=== PATIENT | female | born 1970 | race Caucasian/White ===

== ENCOUNTER → 2022-05-08 11:37 | Outpatient (CLI) | payer OTHER, SELFPAY ==
--- NOTE | 2022-05-08 | DI.US.S_ITS ---
LIMITED ULTRASOUND OF RIGHT BREAST AND AXILLA: 05/08/2022 CLINICAL: Palpable right breast lump by physical, patient and technologist. No prior exams were available for comparison. Color flow and real-time ultrasound of the right breast 12 o'clock, and axilla regions were performed. Angel scale images of the real-time examination were reviewed. There is a 3 cm x 4 cm x 2.3 cm irregular, rounded mass with a microlobulated, angular, and spiculated margin in the right breast at 12 o'clock posterior depth. This mass is hypoechoic. This correlates as palpated and with mammography findings. There are calcifications within the mass. Color flow imaging demonstrates that there is vascularity present. No significant abnormalities were seen sonographically in the right axilla. IMPRESSION: HIGHLY SUGGESTIVE OF MALIGNANCY A 3 cm x 4 cm x 2.3 cm mass in the right breast correlates with the palpable and mammographic abnormality and is highly suggestive of malignancy. An ultrasound guided biopsy is recommended. No right axillary adenopathy. Findings and recommendations were discussed with the patient in person by Dr. Judith Scott at time of exam. This exam was interpreted at Station ID: [id number]. Electronically Signed By: Julia keyes/:05/08/2022 13:11:57 letter sent: Biopsy Required Ultrasound BI-RADS: 5 Highly suggestive of malignancy
--- NOTE | 2022-05-08 | DI.MG.S_ITS ---
BILATERAL DIGITAL DIAGNOSTIC MAMMOGRAM 3D/2D: 05/08/2022 CLINICAL: Right breast lump. Baseline exam by default. No prior exams were available for comparison. There are scattered fibroglandular elements in both breasts. There is a 3.4 cm irregular high density mass with a microlobulated margin and grouped linear pleomorphic calcifications in the right breast at 12 o'clock posterior depth. This is seen in additional views. This correlates as palpated. No other significant masses, calcifications, or other findings are seen in either breast. IMPRESSION: INCOMPLETE: NEEDS ADDITIONAL IMAGING EVALUATION The 3.4 cm irregular high density mass corresponding to the palpable abnormality in the right breast is suspicious. An ultrasound is recommended. This was performed immediately following this exam. Based on the Tyrer Cuzick model (a risk assessment model) the patient's lifetime risk is 9.5% and her 10 year risk is 2.7%. According to the ACR, ACS, and NCCN guidelines, an annual breast MRI exam along with mammogram is recommended if the patient's lifetime risk is 20% or greater. This exam was interpreted at Station ID: [id number]. NOTE: For mammograms, a report in lay terms will be sent to the patient. Approximately 15% of breast malignancies will not be visualized mammographically. In the management of a palpable breast mass, a negative mammogram must not discourage biopsy of a clinically suspicious lesion. Electronically Signed By: Julia keyes/:05/08/2022 12:45:34 ACR BI-RADS Category 0: Incomplete [id number]
--- NOTE | 2022-05-08 | DI.CT.S_ITS ---
PROCEDURE: CT ABDOMEN PELVIS W CON INDICATIONS: Elevated LFT'S TECHNIQUE: After the administration of intravenous contrast, axial sections acquired from the lung bases to the pubic symphysis. Coronal and sagittal reformats were performed. For radiation dose reduction, the following was used: automated exposure control, adjustment of mA and/or kV according to patient size. COMPARISON: None. FINDINGS: Image quality: Excellent. Lung bases: Unremarkable. Heart: No significant findings. ABDOMEN: Liver: There are multiple low-density hepatic masses, indicating a severe degree of a patent metastatic disease. Liver is enlarged. Gallbladder: Is within normal limits Biliary ducts: Unremarkable. Pancreas: Unremarkable. Spleen: Unremarkable. Adrenal Glands: Unremarkable. Kidneys and Ureters: Unremarkable. Stomach and Bowel: Stomach, small bowel loops, and colon are unremarkable. Appendix not seen. No evidence of appendicitis. Peritoneum: No abnormal intraperitoneal fluid. No free air. Ventral Wall: No hernias. Abdominal Nodes: No retroperitoneal or mesenteric adenopathy by size criteria. Vessels: Aorta and inferior vena cava are normal in size. PELVIS: Pelvic Organs: Unremarkable. Bladder: Unremarkable. Pelvic Nodes: No enlarged lymph nodes. Miscellaneous: No hernias are seen. Bones: Unremarkable. IMPRESSION: 1. Severe degree of hepatic metastatic disease. Dictated by: Anamaria Best M.D. on 05/08/2022 at 15:08 Approved by: Anamaria Best M.D. on 05/08/2022 at 15:10
== END ==
PROVIDERS: PCP Naturopath; Referring Provider Naturopath; Visit Provider Naturopath
DX: N63.15 Unspecified lump in the right breast, overlapping quadrants (principal); C80.1 Malignant (primary) neoplasm, unspecified; C78.7 Secondary malignant neoplasm of liver and intrahepatic bile duct; R92.8 Other abnormal and inconclusive findings on diagnostic imaging of breast; R74.8 Abnormal levels of other serum enzymes; R10.11 Right upper quadrant pain
CPT/HCPCS: 74177; 76642; 77066; G0279; Q9967

== ENCOUNTER → 2022-05-16 14:04 | Outpatient (CLI) | payer OTHER, SELFPAY ==
--- NOTE | 2022-05-16 | PATH_ITS ---
[facility] Accession Number: [id number] . 01 Material submitted: . breast - RIGHT BREAST MASS 12:00 APPROX 7 CM FROM NIPPLE . 01 Diagnosis: Right Breast Mass, 12 o'clock, Approximately 7 cm from Nipple, Needle Core Biopsy: Positive for invasive ductal carcinoma. Please see cancer case summary. . CANCER CASE SUMMARY Specimen Procedure: Needle biopsy. Specimen laterality: Right. . Tumor Tumor Size: 5 mm in greatest dimension. Tumor site: Between the upper outer and upper inner quadrants at 12 o'clock. Distance from nipple: Approximately 7 cm. Histologic type: Invasive carcinoma of no special type (ductal by e-cadherin immunohistochemistry). . Histologic grade Glandular/tubular differentiation: Score 3 of 3. Nuclear pleomorphism: Score 2 of 3. Mitotic rate: Score 1 of 3. Overall grade: Grade 2 (6 of 9). . Carcinoma in situ: Not identified. . Lymphovascular invasion: Not identified. . Special studies: Please microscopic description. [facility] 05/22/2022 1200 Local . 01 Electronically signed: . Carmella Novak MD, Pathologist NPI- [id number] . 01 Gross description: . Received one formalin-filled container, labeled with the patient's name and right breast 12 o'clock. The specimen is received with a plastic filter in container, sample loose in container and consists of three fragments of light vasquez-olivas soft tissue which range in size from 0.3 x 0.3 x 0.2 cm to 0.7 x 0.1 x 0.1 cm. The specimen is entirely submitted in one cassette. Collection time and date per requisition: 05/16/22 at 1456. Total fixation time: Approximately 36 hours. ([id number]) /[facility] 05/17/2022 0403 Local . 01 Microscopic: . An immunohistochemistry panel is performed to further evaluate the cells of interest. The control stains show appropriate reactivity. . RESULTS: E-cadherin: Strongly positive, consistent with ductal differentiation. GATA3: Strongly positive, consistent with breast origin. . CAP BREAST BIOMARKER REPORTING TEMPLATE: . Estrogen Receptor (ER) Status: Positive. Average intensity of staining: Positive for the biomarker, moderate staining intensity, approximately 60% of tumor nuclei. Primary antibody: SP1 Progesterone Receptor (PgR) Status: Uninterpretable. Average intensity of staining: weak staining in less than 1% of tumor nuclei; no internal control identified (external control stains appropriately). Primary antibody: 1E2 HER2 (by immunohistochemistry): Equivocal at 2+. Percentage of cells with uniform intense complete membrane stainin% Primary antibody: 4B5 HER2 (ERBB2) (by in situ hybridization): FISH is pending; results will be reported as an addendum. . Cold Ischemia and Fixation Times: Meets requirements in the latest version of the ASCO/CAP guidelines. Testing performed on Block Number: A . TECHNICAL NOTE: The scoring criteria for breast biomarkers by immunohistochemistry is based on the current ASCO/CAP guidelines (Reza et al, Arch Pathol Lab Med 2010: 134(6): 907-922 / Iban SMITH et al, Arch Pathol Lab Med 2014: 138(2):241-256). Deparaffinized sections of formalin fixed tissue (along with appropriate positive controls) are incubated with the above antibody(s). Using the automated [place] stainer, tissue is incubated with the designated antibody* which is then localized by a non-biotin, dual polymer detection system. The external controls are reviewed for appropriate reactivity and found to be adequate. Results on the target cell population are indicated above. These tests have not been validated on decalcified tissue. * This test was developed and its performance characteristics determined by [employer]. It has not been cleared or approved by the U.S. Food and Drug Administration. The FDA has determined that such clearance or approval is not necessary. This test is used for clinical purposes. It should not be regarded as investigational or for research. . 01 Pathologist provided ICD-10: N63.10, C50.911 . 01 CPT . 966748, 050634, 888159, 040332, F80489 Specimen Comment: A courtesy copy of this report has been sent to [facility] Performed at: 01 [facility] [address], [place], [place] [id number] MD Justin Rowell MD Phone: [phone]
--- NOTE | 2022-05-16 | DI.MG.S_ITS ---
UNILATERAL RIGHT DIGITAL DIAGNOSTIC MAMMOGRAM 3D/2D POST-PROCEDURE IMAGING FOR MARKER PLACEMENT: 05/16/2022 CLINICAL: Right post clip. Comparison is made to exams dated: 05/08/2022 ultrasound and 05/08/2022 mammogram - [facility]. There are scattered fibroglandular elements in right breast. There is a marker clip in the appropriate position in the right breast at 12 o'clock posterior depth. This marker clip placement is at the biopsy site. IMPRESSION: POST PROCEDURE MAMMOGRAM FOR MARKER PLACEMENT There was a successful marker clip placement in the right breast posterior depth. Based on the Tyrer Cuzick model (a risk assessment model) the patient's lifetime risk is 7.4% and her 10 year risk is 2.1%. According to the ACR, ACS, and NCCN guidelines, an annual breast MRI exam along with mammogram is recommended if the patient's lifetime risk is 20% or greater. This exam was interpreted at Station ID: [id number]. NOTE: For mammograms, a report in lay terms will be sent to the patient. Approximately 15% of breast malignancies will not be visualized mammographically. In the management of a palpable breast mass, a negative mammogram must not discourage biopsy of a clinically suspicious lesion. Electronically Signed By: Johnny tamez/david:05/16/2022 16:10:55 ACR BI-RADS Category Post-procedure mammogram for marker placement
--- NOTE | 2022-05-16 | DI.US.S_ITS ---
ULTRASOUND GUIDED BIOPSY RIGHT BREAST USING VACUUM DEVICE WITH MARKING DEVICE INSERTED AND POST DIGITAL MAMMOGRAPHIC AND ULTRASOUND IMAGIN05/16/2022 CLINICAL: Right breast mass. PATIENT CONSENT: Risks (minor bleeding, infection, vasovagal reaction and repeat procedure), benefits and alternatives were explained to the patient and written informed consent was obtained. Correlation is made to exams dated: 05/08/2022 ultrasound and 05/08/2022 mammogram - [facility]. An ultrasound guided biopsy using real-time ultrasound was performed for the 3 cm x 4 cm x 2.3 cm mass located in the right breast at 12 o'clock posterior depth. This was described on the previous mammography and ultrasound reports. The skin was prepped in the usual manner. Local anesthetic was administered to the access site. A skin makeda was made in the breast. The abnormality was approached from the lateral aspect. A 13 gauge biopsy needle was placed adjacent to the abnormality under ultrasound guidance. Once the needle was documented to be in the correct location, four specimens were obtained using the Mammotome biopsy system. The patient received additional local anesthetic during the procedure. A clip was inserted into the biopsy cavity. A sterile dressing was applied to the access site. Post procedure digital mammographic and ultrasound imaging demonstrates the location device at the targeted area. The specimens were sent to the laboratory for pathological analysis. IMPRESSION: ULTRASOUND GUIDED BIOPSY MALIGNANT Ultrasound guided biopsy of the 3 cm x 4 cm x 2.3 cm mass in the right breast at 12 o'clock posterior depth was successful with no apparent post procedure complications. Pathology indicates malignant invasive ductal carcinoma (ID). Pathology results are concordant with imaging findings. A surgical/oncologic consultation is recommended. Results and recommendations will be communicated to the ordering provider's office. This exam was interpreted at Station ID: [id number]. wali Linares M.D., M.D./:05/22/2022 15:55:14
== END ==
PROVIDERS: PCP Naturopath; Referring Provider Naturopath; Visit Provider Naturopath
DX: C50.811 Malignant neoplasm of overlapping sites of right female breast (principal); Z17.0 Estrogen receptor positive status [ER+]
CPT/HCPCS: 19083; 77065

== ENCOUNTER → 2022-11-05 13:59 | Outpatient (CLI) | payer OTHER, SELFPAY ==
--- NOTE | 2022-11-05 14:03 | DI.CT.S_ITS ---
PROCEDURE: CT CHEST ABD PEL W CON INDICATIONS: Breast cancer TECHNIQUE: After the administration of oral and intravenous contrast, axial sections acquired from the supraclavicular neck to the pubic symphysis. Coronal and sagittal reformats were performed. For radiation dose reduction, the following was used: automated exposure control, adjustment of mA and/or kV according to patient size. COMPARISON: [facility], CT, CT ABDOMEN PELVIS W CON, 05/08/2022, 13:18. [facility], US, US BX BREAST PERC W VAC DEVICE, 05/16/2022, 14:18. FINDINGS: Image quality: Excellent. CHEST: Lower Neck: No enlarged lymph nodes. Thyroid: Unremarkable Axillae: Right axillary node measuring at 0.8 cm short axis diameter, (2/30). Subpectoral node measuring 0.8 cm, (2/24). Chest Wall: Right breast mass measuring 4.4 x 3.1 cm, (2/33). Lungs and Airways: A few small pulmonary nodules. For example: -Right upper lobe 0.5 cm, (5/117). -Right middle lobe 0.6 cm, (5/196). -Right lower lobe 0.5 cm, (5/265), previously 0.2 cm. -Left upper lobe 0.4 cm, (5/192). Pleura: No pneumothorax or pleural effusions. Heart: Heart size is normal. No pericardial effusion. Thoracic Vessels: The aorta and pulmonary arteries demonstrate normal size. Mediastinum and Sharron: No enlarged lymph nodes. Esophagus: No wall thickening. No hiatal hernia. ABDOMEN: Liver: Hepatomegaly. Innumerable hepatic metastases are worsened. For example: -Left lobe 6 cm, (2/67), previously 4.4 cm. -Right lobe inferior 3.9 cm, (2/97), previously 2.1 cm. Gallbladder: Not distended. Biliary ducts: Unremarkable. Pancreas: Unremarkable. Spleen: Unremarkable. Adrenal Glands: Unremarkable. Kidneys and Ureters: No hydronephrosis. Stomach and Bowel: No small bowel obstruction. Stomach is not distended. Appendix is not dilated. Peritoneum: Small volume of ascites, increased. No pneumoperitoneum. Ventral Wall: No hernia. Abdominal Nodes: Retroperitoneal adenopathy and periportal. -Intra-aortic caval node measuring 1.3 cm, (2/75), previously 1 cm. -Left periaortic 1.1 cm, (/), previously 0.8 cm. Vessels: Aorta and inferior vena cava are normal in size. PELVIS: Pelvic Organs: Uterus is absent. Small to moderate volume of fluid in the pelvis. Bladder: Decompressed. Pelvic Nodes: No enlarged lymph nodes. Miscellaneous: No inguinal hernias are seen. Bones: No suspicious lesion identified. IMPRESSION: 1. Right breast mass measuring 4.4 cm. 2. Small right axillary and subpectoral nodes. 3. Small pulmonary nodules most consistent with metastatic disease. 4. Enlarging innumerable hepatic metastases. Increased small volume ascites. 5. Retroperitoneal and periportal adenopathy is increased. 6. No suspicious osseous lesions. Dictated by: Vito Carmona M.D. on 11/05/2022 at 17:24 Approved by: Vito Carmona M.D. on 11/05/2022 at 17:44
== END ==
PROVIDERS: PCP Naturopath; Referring Provider Internal Medicine Hematology & Oncology; Visit Provider Internal Medicine Hematology & Oncology
DX: C50.911 Malignant neoplasm of unspecified site of right female breast (principal); C78.7 Secondary malignant neoplasm of liver and intrahepatic bile duct; R91.8 Other nonspecific abnormal finding of lung field; Z17.0 Estrogen receptor positive status [ER+]
CPT/HCPCS: 71260; 74177; 99213; Q9967

== ENCOUNTER 2022-11-12 12:32 | Day surgery (SDC) | payer OTHER, SELFPAY ==
[2022-11-06 15:11] VITALS: BMI 19.3
[2022-11-12] VITALS (8 sets, daily range): BP systolic 112–139; BP diastolic 68–84; PULSE 59–106; RESP 11–16; TEMP 36.2–37; O2SAT 95–99; BMI 18.3
--- NOTE | 2022-11-12 | PATH_ITS ---
[facility] Accession Number: [id number] No. of containers..01 Tissue . 01 Material submitted: . lymph node - RIGHT NECK LYMPH NODE . 01 Diagnosis: Right Neck Lymph Node, Excision: Adenocarcinoma, consistent with known ductal mammary carcinoma. No definite lymph node tissue identified. . . CAP BREAST BIOMARKER REPORTING TEMPLATE: . Estrogen Receptor (ER) Status: Positive, 30%. Average intensity of staining: Weak. Primary antibody: SP1 Progesterone Receptor (PgR) Status: Negative. Primary antibody: 1E2 HER2 (by immunohistochemistry): Equivocal (2+). Primary antibody: 4B5 . Cold Ischemia and Fixation Times: Meets requirements in the latest version of the ASCO/CAP guidelines. Testing performed on Block Number: A1 . TECHNICAL NOTE: The scoring criteria for breast biomarkers by immunohistochemistry is based on the current ASCO/CAP guidelines (Reza et al, Arch Pathol Lab Med 2010: 134(6): 907-922 / Iban SMITH et al, Arch Pathol Lab Med 2014: 138(2):241-256). Deparaffinized sections of formalin fixed tissue (along with appropriate positive controls) are incubated with the above antibody(s). Using the automated [place] stainer, tissue is incubated with the designated antibody* which is then localized by a non-biotin, dual polymer detection system. The external controls are reviewed for appropriate reactivity and found to be adequate. Results on the target cell population are indicated above. These tests have not been validated on decalcified tissue. * This test was developed and its performance characteristics determined by [employer]. It has not been cleared or approved by the U.S. Food and Drug Administration. The FDA has determined that such clearance or approval is not necessary. This test is used for clinical purposes. It should not be regarded as investigational or for research. V 11/18/2022 1238 [facility] . 01 Comment: Given the equivocal HER2 status by immunohistochemistry, FISH will be performed, and results issued in an addendum. . As part of routine quality assurance supervisor body. Dr. Novak has reviewed this case, including the prognostic markers, and agrees with the diagnosis above. . 01 Electronically signed: . Pee Douglass MD, PhD, Pathologist NPI- [id number] . 01 Gross description: . The specimen is received in formalin labeled with the patient's name, , and right neck lymph node, and consists of a single olivas lymph node candidate measuring 1.2 x 0.7 x 0.7 cm. The specimen is serially sectioned and submitted entirely in cassette A1. The specimen was removed on 11/12/22, time not provided, cold ischemic time cannot calculated. Total fixation time is approximately 48 hours. ([id number]) /[facility] 11/13/2022 1750 Local . 01 Microscopic: . Sections are of fibrous tissue expanded by a proliferation of epithelioid cells in a nested and trabecular architecture. No definite lymph node tissue is seen. To further classify the malignant cells, a panel of immunohistochemical stains is performed (each with an appropriately positive control). The malignant cells are positive for GATA3 (strong diffuse), GCDFP (rare positive), and mammoglobin (rare positive) immunoreactivity, consistent with the known history of ductal mammary carcinoma. . * This test was developed and its performance characteristics determined by [employer]. It has not been cleared or approved by the U.S. Food and Drug Administration. The FDA has determined that such clearance or approval is not necessary. This test is used for clinical purposes. It should not be regarded as investigational or for research. . 01 Pathologist provided ICD-10: C77.0, Z85.3 . 01 CPT . 408129, D90166, L06815, 912034, 790850, 527180 Specimen Comment: A courtesy copy of this report has been sent to [phone] Performed at: 01 [facility] [address] [place] [address], [place], [place] [id number] MD Justin Rowell MD Phone: [phone]
--- NOTE | 2022-11-12 | DI.RAD.S_ITS ---
PROCEDURE: XR CHEST 1V INDICATIONS: intra-op TECHNIQUE: 2 intraoperative fluoroscopic views of the chest was acquired. COMPARISON: [facility], , XR CHEST 1V, 11/12/2022, 15:34. FINDINGS: Intraoperative fluoroscopic images of right upper chest shows right chest wall Port-A-Cath tip projecting in the region of SVC. IMPRESSION: Fluoro guidance was provided intraoperatively for right chest wall Port-A-Cath insertion. Dictated by: Tahir Olivares M.D. on 11/12/2022 at 16:10 Approved by: Tahir Olivares M.D. on 11/12/2022 at 16:10
--- NOTE | 2022-11-12 | DI.RAD.S_ITS ---
PROCEDURE: XR CHEST 1V INDICATIONS: Post-op port a cath placement TECHNIQUE: One view of the chest was acquired. COMPARISON: None. FINDINGS: Surgical changes and devices: Right chest wall Port-A-Cath tip is in SVC. Lungs and pleura: Lungs are clear. No pleural effusions or pneumothorax. Mediastinum: Mediastinal contours appear normal. Heart size is normal. Bones and chest wall: No suspicious bony lesions. Overlying soft tissues appear unremarkable. IMPRESSION: Right chest wall Port-A-Cath tip is in SVC. No focal infiltrate, pleural effusion or pneumothorax. Dictated by: Tahir Olivares M.D. on 11/12/2022 at 16:09 Approved by: Tahir Olivares M.D. on 11/12/2022 at 16:10
--- NOTE | 2022-11-12 12:58 | PM.PREOP ---
Pre-operative Note COVID-19 COVID-19 status: Not tested Interval Note History & Physical reviewed/Exam performed by Physician: Yes Changes to H&P: No ASA Class (for procedural sedation): III
[2022-11-12] MEDS: LACTATED RINGERS 1,000 ML 100 ML IV ×3 (13:41→15:50)
[2022-11-12] MEDS: SCOPOLAMINE 1 PATCH TOP (13:56)
[2022-11-12] MEDS: CEFAZOLIN 2 GM/100 ML PREMIX 100 ML IV (14:10)
--- NOTE | 2022-11-12 14:32 | SUR.OPER ---
Supine on padded OR bed, head on gel donut, arms padded and tucked at sides, legs uncrossed, safety belt at thigh, tape over blanket over lower legs . Gel pad under bilateral heels.
[2022-11-12] MEDS: BUPIVACAINE 0.5% W/ EPI (PF) 30 ML VIAL INJ (15:01)
--- NOTE | 2022-11-12 15:30 | PM.OP.1 ---
Operative Date/Time/Diagnoses Date of procedure: 11/12/22 Time of procedure: 15:31 Pre-op diagnosis: Metastatic breast cancer Post-op diagnosis: same Procedure & Clinicians Procedure: Port-A-Cath Right neck lymph node biopsy Same procedure as scheduled: Yes Surgeon: Woodrow Dorsey Anesthesia Type: General Operative Notes Procedure in detail: The patient was brought to the operating room, placed on the table in the supine position with the arms tucked. Ancef was administered. Anesthesia was induced via LMA. A time-out was performed. The right chest and neck were prepped and draped in the usual fashion. An ultrasound was used to identify the right internal jugular vein. The vein was noted to be patent. An image was saved and printed and placed in the chart. The right internal jugular vein was accessed via the Seldinger technique under ultrasound guidance. The guidewire was inserted into the superior vena cava. C-arm was used to confirm proper position of the guidewire in the superior vena cava and no ectopy was noted. The needle was removed and the wire was clamped to the drape. Next, a port pocket was created just inferior to the right clavicle using a 15 blade scalpel. Dissection was carried down to the pectoral fascia. A subcutaneous pocket was created using a combination of cautery and blunt dissection. Next, the port which was primed with injectable saline, was secured to the fascia with 3-0 PDS sutures left untied and clamped. The neck incision was extended with an 11 blade scalpel to approximately 5 mm. The dilator and peel-away sheath were inserted over the wire without resistance. The catheter was passed from the neck incision to the chest incision in the subcutaneous tissue using the tunnelling device. The wire and dilator were then removed and the catheter inserted through the peel-away sheath to deliver it into the superior vena cava. The depth of the device was checked using the C-arm and the tip of the device was noted to be in the distal superior vena cava. The exterior portion of the catheter was then trimmed and attached to the port using the strain relief collar. A final image showed good position of the catheter with no kinks. The port was then tucked into the subcutaneous pocket and the sutures were tied to secure the device. The port was then accessed using the Watson needle and it was noted that the device darrion and flushed easily without resistance. Approximately 6 mL of heparinized saline were injected into the device. The skin incisions were closed with 3-0 Vicryl and 4-0 Monocryl. Steri-Strips were applied patient was awakened and brought to recovery room. Finally, the palpable lymph node in the lateral right neck was excised. We made a 2 cm axial incision over the palpable node. The node appeared to be deep to the platysma which was divided. The node was grasped with an Allis clamp to retracted away from the neck and careful use of cautery was used to free the node from the surrounding tissue. The node was quite firm and was about 5 mm in diameter. The biopsy incision was closed in layers using multiple interrupted 3-0 Vicryl dermal sutures and a running 4-0 Monocryl subcuticular stitch. EBL: 5 mL Ultrasound: The right internal jugular vein was patent. The right carotid artery was visualized adjacent to the vein. Venipuncture was visualized in real-time using the ultrasound. Fluoroscopy: The device was positioned appropriately with the distal end of the catheter near the atriocaval junction. There were no kinks in the catheter. Post-operative Condition: stable Disposition: PACU
[2022-11-12] MEDS: fentaNYL 100 MCG/2 ML INJ IV ×2 (15:43→15:53)
[2022-11-12] MEDS: ONDANSETRON 4 MG/2 ML INJ IV ×2 (15:44→15:58)
[2022-11-12] MEDS: ACETAMINOPHEN IV 1,000 MG/100 ML VIAL 400 MG IV (16:05)
[2022-11-12] MEDS: METOCLOPRAMIDE 10 MG/2 ML INJ IV (16:05)
== END 2022-11-12 17:05 | disposition home or self-care (01) ==
PROVIDERS: PCP Naturopath; Referring Provider Surgery; Visit Provider Surgery
PROC: (CPT 36561; principal; 2022-11-12 14:00)
PROC: (CPT 36561; 2022-11-12 14:00)
DX: C50.911 Malignant neoplasm of unspecified site of right female breast (principal); C78.7 Secondary malignant neoplasm of liver and intrahepatic bile duct; C77.0 Secondary and unspecified malignant neoplasm of lymph nodes of head, face and neck; Z17.0 Estrogen receptor positive status [ER+]
CPT/HCPCS: 36561; 38510; 71045; 76000; J0131; J0690; J1100; J1644; J1885; J2250; J2405; J2704; J2765; J3010

== ENCOUNTER → 2023-02-04 13:43 | Outpatient (CLI) | payer OTHER, SELFPAY ==
--- NOTE | 2023-02-04 | DI.CT.S_ITS ---
PROCEDURE: CT CHEST ABD PEL W CON INDICATIONS: MALIGNANT NEOPLASM OF RIGHT BREAST TECHNIQUE: After the administration of oral and intravenous contrast, axial sections acquired from the supraclavicular neck to the pubic symphysis. Coronal and sagittal reformats were performed. For radiation dose reduction, the following was used: automated exposure control, adjustment of mA and/or kV according to patient size. COMPARISON: [facility], CT, CT CHEST ABD PEL W CON, 11/05/2022, 15:49. FINDINGS: Image quality: Excellent. CHEST: Lower Neck: No enlarged lymph nodes. Thyroid: Within normal limits. Axillae: Right subpectoral node measuring 0.6 cm, (2/22), previously 0.5 cm. Chest Wall: Right breast mass measures 1.3 cm, (2/27), previously 3.1 cm. Right-sided port with the catheter tip at the lower 3rd of the SVC. Lungs and Airways: No new or enlarging pulmonary nodules. A few small pulmonary nodules. For example: -Right middle lobe 0.4 cm, (5/147), previously 0.6 cm. -Right lung base is 0.3 cm, (5/238), previously 0.5 cm. No acute airspace opacity. Airways are clear. Pleura: No pneumothorax or pleural effusions. Heart: Heart size is normal. Trays pericardial fluid. Thoracic Vessels: The aorta and pulmonary arteries demonstrate normal size. Mediastinum and Sharron: No enlarged lymph nodes. Esophagus: No wall thickening. No hiatal hernia. ABDOMEN: Liver: Hepatomegaly. Numerous hepatic lesions. Some of the lesions demonstrate increased central hypodensity and decreased rim enhancement. -Left lobe lesion measuring 5.3 cm, (2/62), previously 6 cm. -Right lobe inferior lesion measuring 3.4 cm, (2/87), previously 3.9 cm. Gallbladder: Unremarkable. Biliary ducts: Unremarkable. Pancreas: Unremarkable. Spleen: Unremarkable. Adrenal Glands: Unremarkable. Kidneys and Ureters: No hydronephrosis. Stomach and Bowel: Stomach, small bowel loops, and colon are unremarkable. Normal appendix. Peritoneum: Trace ascites, decreased. No free air. Ventral Wall: No hernia. Abdominal Nodes: Retroperitoneal adenopathy. Upper intra-aortic caval node measuring 1 cm, (2/70), previously 1.3 cm. Left periaortic node measuring 0.9 cm, (previously 1.1 cm. Vessels: Aorta and inferior vena cava are normal in size. PELVIS: Pelvic Organs: Uterus is absent. Bladder: Unremarkable. Pelvic Nodes: No enlarged lymph nodes. Miscellaneous: No inguinal hernias are seen. Bones: No suspicious lesion. IMPRESSION: 1. Right breast mass measuring 1.3 cm, decreased. 2. Right subpectoral node is unchanged. 3. Small pulmonary nodules are decreased. 4. Numerous hepatic metastases. A few are decreased in size. There is decreased rim enhancement and increased central hypodensity due to post treatment change. Decreased ascites. 5. Retroperitoneal adenopathy is slightly decreased. Dictated by: Vito Carmona M.D. on 02/04/2023 at 16:13 Approved by: Vito Carmona M.D. on 02/04/2023 at 16:32
== END ==
PROVIDERS: PCP Naturopath; Referring Provider Internal Medicine Hematology & Oncology; Visit Provider Internal Medicine Hematology & Oncology
DX: C50.911 Malignant neoplasm of unspecified site of right female breast (principal); C78.7 Secondary malignant neoplasm of liver and intrahepatic bile duct; R91.8 Other nonspecific abnormal finding of lung field; R59.1 Generalized enlarged lymph nodes
CPT/HCPCS: 71260; 74177; Q9967

== ENCOUNTER → 2023-03-13 12:31 | Outpatient (CLI) | payer OTHER, SELFPAY ==
--- NOTE | 2023-03-13 | DI.ECHO.S_ITS ---
[facility] +---------+ : : [address] : : : : [id number] : : : : Phone: [phone]---------+ Echocardiogram Report + + :Name: VERONICA FOWLER Study Date: 03/13/2023 Height: 66 in : :[facility] ReadingLocation: Weight: 118 lb : : Gender: Female BSA: 1.6 m2 : :: 1970 Age: 53 yrs BP: 100/63 mmHg: :Reason For Study: PALPITATIONS, CHEMOTHERAPY : :Ordering Physician: HARISH CHRISTIE MPerformed By: Adri Patten : :Referring: HARISH CHRISTIE M : + + Interpretation Summary 1) Normal left ventricular thickness, size, wall motion, and systolic function (EF 55-60%). Left ventricular global longitudinal strain average is normal at -18.2% (normal is more negative than -20%). 2) Normal right ventricular size and function. 3) No significant valvular abnormalities. 4) No prior Echo available for comparison. Procedure: A two-dimensional transthoracic echocardiogram with color flow and Doppler was performed. The study quality was technically good. There is no prior echocardiogram noted for this patient. The patient was in sinus rhythm with heart rates between 71-83 bpm during the exam. Left Ventricle: The left ventricle is normal in size and wall thickness. A false chord is noted (normal variant). Left ventricular global longitudinal strain average is normal at -18.2% (normal is more negative than -20%). The ejection fraction is estimated to be 55-60%. Left ventricular systolic function appears normal without focal wall motion abnormalities. Diastolic parameters suggest probable normal left ventricular diastolic function and normal filling pressures. Right Ventricle: The right ventricle is normal in size and function. Atria: The left atrial size is normal. Right atrial size is normal. There is no Doppler evidence for an interatrial shunt. Mitral Valve: The mitral valve is normal in structure and function. There is trace mitral regurgitation. Aortic Valve: The aortic valve is trileaflet. The aortic valve opens well. There is no aortic valve stenosis. No aortic regurgitation is present. Tricuspid Valve: The tricuspid valve is normal in structure and function. There is mild tricuspid regurgitation. The right ventricular systolic pressure is estimated to be at least 21 mmHg based on an estimated right atrial pressure of 3 mm Hg. Pulmonic Valve: The pulmonic valve leaflets are thin and pliable; valve motion is normal. There is trace pulmonic regurgitation. Great Vessels: The aortic root is normal size. The dimensions of the ascending aorta are normal. The IVC is of normal diameter and collapses greater than 50% with a sniff. This suggests a low right atrial pressure of 3 mm Hg. Pericardium/ Pleura There is no pericardial effusion. There is no pleural effusion. MMode/2D Measurements & Calculations LVIDd: 5.1 cm LVOT diam: 2.0 cm LVIDs: 3.6 cm Ao root diam: 3.3 cm FS: 29.1 % asc Aorta Diam: 3.1 cm EPSS: 0.87 cm IVSd: 0.71 cm LVPWd: 0.73 cm LV gee. diameter/BSA (cm/m^2): 3.2 LV sys. diameter/BSA (cm/m^2): 2.3 LA A2 area: 19.6 cm2 RA long axis: 4.5 cm LA A4 area: 14.0 cm2 RA area: 15.2 cm2 LA length (vol): 4.7 cm RA vol: 43.5 ml LA vol: 49.4 ml RA : 27.2 ml/m2 LA vol index: 30.9 ml/m2 IVC diam: 0.79 cm RVD1 (basal): 3.4 cm RVD2 (mid): 2.7 cm TAPSE: 1.9 cm Doppler Measurements & Calculations Ao V2 max: 134.7 cm/sec LVOT Max Declan: 89.1 cm/sec Ao V2 mean: 97.1 cm/sec LV V1 max P.2 mmHg Ao max P.3 mmHg LV V1 VTI: 16.8 cm Ao mean P.1 mmHg IRMA(I,D): 2.2 cm2 Ao V2 VTI: 23.3 cm IRMA(V,D): 2.0 cm2 sev ratio: 0.72 IRMA indexed to BSA (cm^2/m^2): 1.4 MV E max declan: 59.5 cm/sec TR max declan: 211.5 cm/sec MV A max declan: 57.6 cm/sec TR max P.9 mmHg MV E/A: 1.0 PA V2 max: 86.6 cm/sec Med Peak E' Declan: 9.7 cm/sec PA V2 mean: 64.3 cm/sec E/E' med: 6.1 PA mean P.8 mmHg Lat Peak E' Declan: 12.2 cm/sec PA pr(Accel): 41.7 mmHg E/E' lat: 4.9 E/e' average: 5.5 MV dec time: 0.22 sec SV(BRUNA): 50.3 ml Reading Physician:03:22 PM
== END ==
PROVIDERS: PCP Naturopath; Referring Provider Internal Medicine Hematology & Oncology; Visit Provider Internal Medicine Hematology & Oncology
DX: R00.2 Palpitations (principal); C55 Malignant neoplasm of uterus, part unspecified
CPT/HCPCS: 93306; 93356

== ENCOUNTER → 2023-05-27 12:37 | Outpatient (CLI) | payer OTHER, SELFPAY ==
--- NOTE | 2023-05-27 12:44 | DI.CT.S_ITS ---
PROCEDURE: CT CHEST ABD PEL W CON INDICATIONS: BREAST CANCER TECHNIQUE: After the administration of intravenous contrast, 5 mm thick sections acquired from the lung apices to the symphysis. 5 mm coronal and sagittal reformats were performed, with additional 7 mm MIP reformats through the lungs. For radiation dose reduction, the following was used: automated exposure control, adjustment of mA and/or kV according to patient size. COMPARISON: [facility], CT, CT CHEST ABD PEL W CON, 02/04/2023, 13:56. FINDINGS: CHEST: Lungs and pleura: A few small pulmonary nodules are present as before. For example: -right middle lobe: 4 mm (7/153), unchanged. -right lower lobe anterior: 3 mm (7/251), unchanged. No definite new suspicious or enlarging pulmonary nodule. No consolidation or pleural effusion. Mediastinum: No pericardial effusion. No mediastinal or hilar adenopathy by size criteria. Thoracic aorta and central pulmonary arteries are normal in size. Esophagus is normal in caliber. Chest wall: Previously demonstrated right breast mass appears decreased, however the breasts are not well evaluated by CT. A right chest port is present with tip of the catheter at the lower SVC. Previously indexed right subpectoral lymph node measures 4 mm short axis (2/20) previously 6 mm. ABDOMEN: Solid organs: Multiple liver lesions present as before. Examples include: -segment 2: 5.5 cm (2/58) previously 6.0 cm. -segment 6: 2.7 cm (2/78) previously 3.7 cm. Gallbladder is unremarkable . Biliary system is non dilated. Pancreas enhances normally. Spleen is normal in size and enhancement. No adrenal nodules. No hydronephrosis Peritoneum and bowel: No evidence of mechanical small bowel obstruction. Trace perihepatic free fluid, not significantly changed. No free air. Nodes and vessels: Previously indexed upper interaortocaval lymph node measures 1.1 cm short axis (/68) previously 1.2 cm remeasured. No definite worsening adenopathy identified. No abdominal aortic aneurysm. PELVIS: Genitourinary: Bladder wall thickness is normal. The uterus is not visualized and is presumed surgically absent. Miscellaneous: No adenopathy. Bones: Multilevel degenerative change of the visualized spine. IMPRESSION: 1. Multiple hepatic metastases present as before, several have decreased in size since the prior exam. 2. No definite evidence of worsening disease identified within the chest, abdomen, or pelvis. Dictated by: Johnny Carreno M.D. on 05/28/2023 at 8:27 Approved by: Johnny Carreno M.D. on 05/28/2023 at 9:20
== END ==
PROVIDERS: PCP Naturopath; Referring Provider Internal Medicine Hematology & Oncology; Visit Provider Internal Medicine Hematology & Oncology
DX: C78.7 Secondary malignant neoplasm of liver and intrahepatic bile duct (principal); C50.911 Malignant neoplasm of unspecified site of right female breast; R91.8 Other nonspecific abnormal finding of lung field; R07.9 Chest pain, unspecified; M54.50 Low back pain, unspecified; M54.6 Pain in thoracic spine; Z92.21 Personal history of antineoplastic chemotherapy
CPT/HCPCS: 71260; 74177

== ENCOUNTER → 2023-07-29 13:08 | Outpatient (CLI) | payer OTHER, SELFPAY ==
--- NOTE | 2023-07-29 | DI.MRI.S_ITS ---
PROCEDURE: MR HEAD/BRAIN WO/W CON INDICATIONS: HEADACHES / BREAST CANCER WITH METS TECHNIQUE: Noncontrast axial T1 spin echo, axial T2 fast spin echo, sagittal and axial FLAIR, coronal T2 fast spin echo, axial gradient echo, axial diffusion and ADC through the brain. After the administration of contrast, axial and coronal and sagittal 3D VIBE or T1 spin echo with fat saturation through the brain. COMPARISON: None. FINDINGS: Image quality: Excellent. CSF Spaces: Basal cisterns are patent. No extra-axial fluid collections. Ventricles are normal in size and shape. Brain: Extra-axial enhancing lesion involving the posterior falx and parietal dura measuring 1.5 x 1.4 x 1.6 centimeters. No midline shift. No intracranial bleeds or masses. No abnormal intracranial enhancement. Few, scattered T2/FLAIR hyperintensities within the periventricular and deep white matter, nonspecific and likely representing chronic microvascular ischemic changes. Mild age-related global volume loss. The brainstem appears normal. Diffusion-weighted images demonstrate no acute ischemic insults. No chronic ischemic insults. Normal intravascular flow voids are present. Skull and face: Calvarial marrow is normal in signal. Orbits appear normal. Sinuses: The paranasal sinuses are clear. Trace right mastoid effusion.. IMPRESSION: 1. No definite evidence of intracranial metastatic disease. 2. Extra-axial dural-based mass involving the posterior falx and left parietal dura measure up to 1.6 centimeters, favored to represent a meningioma. 3. No acute intracranial abnormalities. Dictated by: Pool Graham M.D. on 07/29/2023 at 14:48 Approved by: Pool Graham M.D. on 07/29/2023 at 14:54
== END ==
PROVIDERS: PCP Naturopath; Referring Provider Internal Medicine Hematology & Oncology; Visit Provider Internal Medicine Hematology & Oncology
DX: C50.911 Malignant neoplasm of unspecified site of right female breast (principal)
CPT/HCPCS: 70553

== ENCOUNTER → 2023-10-14 12:43 | Outpatient (CLI) | payer OTHER, SELFPAY ==
--- NOTE | 2023-10-14 12:52 | DI.CT.S_ITS ---
PROCEDURE: CT CHEST ABD PEL W CON INDICATIONS: RIGHT BREAST CANCER TECHNIQUE: After the administration of intravenous contrast, 5 mm thick sections acquired from the lung apices to the symphysis. 5 mm coronal and sagittal reformats were performed, with additional 7 mm MIP reformats through the lungs. For radiation dose reduction, the following was used: automated exposure control, adjustment of mA and/or kV according to patient size. COMPARISON: [facility], CT, CT CHEST ABD PEL W CON, 05/27/2023, 12:51. FINDINGS: Image quality: Excellent. CHEST: Lower Neck: No enlarged lymph nodes. Thyroid: No thyroid nodules which require sonographic follow up, per consensus guidelines. Axillae: No enlarged lymph nodes. Chest Wall: Spiculated region within the upper, outer quadrant of the right breast with central calcification, stable from prior (series 2, image 34). Right chest wall port tip terminates in the low SVC. Lungs and Pleura: No pneumothorax or pleural effusions. New 2 mm solid nodule in the anterior right upper lobe (series 3, image 106). Stable 3 mm juxtapleural nodule, right middle lobe (series 3, image 154). Stable 2 mm juxtapleural nodule, right lower lobe (series 3, image 250). Heart: Heart size is normal. No pericardial effusion. Thoracic Vessels: The aorta and pulmonary arteries demonstrate normal size. Mediastinum and Sharron: No enlarged lymph nodes. Esophagus: No wall thickening. No hiatal hernia. ABDOMEN: Liver: Extensive liver metastases, with a pseudocirrhosis appearance. Index lesions as follows: -1.7 cm segment 6 lesion, previously 2.7 cm (series 2, image 70). -4.8 cm segment 2 lesion, previously 5.5 cm (series 2, image 61). Gallbladder: No radiopaque gallstones or wall thickening. Biliary ducts: No biliary dilation. Pancreas: No ductal dilation. Spleen: Size is within normal limits. Adrenal Glands: No adrenal nodules. Kidneys and Ureters: No hydronephrosis. No solid mass. No complex renal cystic lesion which requires follow up. Stomach and Bowel: Normal colonic caliber, without significant wall thickening. Peritoneum: Small volume ascites. Ventral Wall: No hernia. Abdominal Nodes: Aortocaval node measures 9 mm short axis, previously 1.1 cm. Vessels: Aorta and inferior vena cava are normal in size. Similar short segment flap within the right external iliac artery (series 2, image 88). PELVIS: Pelvic Organs: Unremarkable. Bladder: Unremarkable. Pelvic Nodes: No enlarged lymph nodes. Miscellaneous: No inguinal hernias are seen. Bones: No aggressive osseous abnormality. IMPRESSION: Similar appearance of the region of architectural distortion in the upper, outer quadrant of the right breast. Slight interval decrease in size of the target liver lesions. New 2 mm solid nodule in the right upper lobe, probably post infectious/inflammatory, significantly less likely metastatic disease. Attention on follow-up. No evidence of new metastatic disease. Dictated by: Charlie Hobbs M.D. on 10/14/2023 at 14:30 Approved by: Charlie Hobbs M.D. on 10/14/2023 at 14:52
== END ==
LOC: CT 12:43
PROVIDERS: PCP Naturopath; Referring Provider Internal Medicine Hematology & Oncology; Visit Provider Internal Medicine Hematology & Oncology
DX: C50.911 Malignant neoplasm of unspecified site of right female breast (principal); C78.7 Secondary malignant neoplasm of liver and intrahepatic bile duct; R91.8 Other nonspecific abnormal finding of lung field
CPT/HCPCS: 71260; 74177; Q9967

== ENCOUNTER → 2023-11-04 13:34 | Outpatient (CLI) | payer OTHER, SELFPAY ==
--- NOTE | 2023-11-04 | DI.MRI.S_ITS ---
BREAST MRI OF BOTH BREASTS: 11/04/2023 CLINICAL: Malignant neoplasm of the Right breast. PROCEDURE: MR BREAST BI WO/W CON INDICATIONS: MALIGNANT NEOPLASM OF RIGHT BREAST TECHNIQUE: The patient was placed prone in a dedicated breast imaging coil. Precontrast axial STIR and 3D FLASH without fat saturation sequences were obtained. Both before and after bolus injection of contrast, sequential 1-minute axial 3D FLASH with fat saturation sequences for 3 time points, with subtraction images and maximum intensity projections (MIP's) generated. Delayed sagittal FLASH images with fat saturation were also obtained. CONTRAST: 20 cc ProHance IV contrast. Computer-aided detection, including computer algorithm analysis of MRI image data for lesion detection and characterization, pharmacokinetic analysis, with further physician review for interpretation, was performed. COMPARISON: US, US BREAST RT LIMITED, 05/08/2022, 12:44. [facility], CT, CT CHEST ABD PEL W CON, 10/14/2023, 12:54. CT, CT CHEST ABD PEL W CON, 05/27/2023, 12:51. CT, CT CHEST ABD PEL W CON, 02/04/2023, 13:56. [facility], MG, MM DIAGNOSTIC MAMMO UNILAT RT2D, 05/16/2022, 14:57. FINDINGS: Image quality: Good. Susceptibility artifact in the right upper chest due to central venous line port. There is mild background parenchymal enhancement. Right breast: Right breast 12:00 o'clock posterior depth spiculated enhancing mass measuring 2.3 x 2.1 x 2 cm, ( and /). (Previously measured 4 x 3 x 2.3 cm on ultrasound 05/08/2022). The lesion measures 1.9 x 1.[address] chest, abdomen and pelvis 10/14/2023 compared to 1.8 x 0[address] chest, abdomen pelvis 05/27/2023. Overall, suspect that the lesion is similar in size over the last 6 months and decreased in size compared to baseline ultrasound in April 2022. Susceptibility artifact from prior biopsy clip within this lesion. Kinetic enhancement is heterogeneous. The most suspicious kinetic analysis component demonstrates rapid initial phase and washout delayed phase. No additional mass or suspicious enhancement. No definite areas of skin thickening. Right retroareolar duct with proteinaceous/hemorrhagic debris, (). Left breast: No mass or suspicious enhancement. Small enhancing focus 3:00 o'clock middle/posterior depth, (). Left breast lateral 3:00 o'clock middle depth area of skin and subdermal thickening measuring 1.3 cm in length and 0.8 cm in depth, (). No abnormal enhancement appreciated. There is heterogeneous T2 signal in this region. No abnormality appreciated on prior CT or mammogram. Miscellaneous: Hypoenhancing liver lesions partially visualized and not well characterized. No enlarged lymph nodes. IMPRESSION: KNOWN BIOPSY PROVEN MALIGNANCY 1. Right breast: 12:00 o'clock posterior depth spiculated enhancing mass measuring 2.3 cm. Biopsy proven invasive ductal carcinoma in 2021. Suspicious kinetic analysis. 2. Right breast: Right retroareolar intraductal proteinaceous/hemorrhagic debris. 3. Right breast: No additional mass or focal areas of skin thickening identified. 4. Left breast: No mass. Small enhancing focus in the left breast 3:00 o'clock middle/posterior depth noted. 5. Left breast: Focal area of nonenhancing thickening at the left breast 3:00 o'clock middle depth. Indeterminate clinical significance. Recommend clinical correlation. If clinically indicated this could be evaluated with targeted ultrasound. 6. Lymph nodes: No enlarged lymph nodes. 7. Hypoenhancing liver lesions partially visualized. BIRADS 6 COMMENT: The imaging literature indicates that a negative contrast breast MRI examination has a high sensitivity and a moderate specificity for detecting and excluding invasive carcinomas to a detection threshold of 3-5 mm; nonetheless, appropriate clinical and mammographic follow-up are recommended. MRI is not sensitive for detecting DCIS (ductal carcinoma in situ) and may not detect large invasive neoplasms that show only minimal enhancement such as mucinous carcinoma. If there are suspicious calcifications or clinically worrisome palpable masses, then biopsy should still be considered. Invasive neoplasms can be hidden by co-existent and benign enhancement caused by mastitis, hormone therapy effects, radiation therapy, , and recent biopsy or surgery. False positive examinations can occur in a number of circumstances, including breasts that have recently been subject to invasive procedures and those that contain atypical ductal hyperplasia, hormonally stimulated glandular tissue, fat necrosis, or radial scars. Dictated by: Vito Carmona M.D. on 11/05/2023 at 10:13 This exam was interpreted at Station ID: [id number]. Electronically Signed By: Vito Carmona M.D. slc/:11/05/2023 10:51:22 ACR BI-RADS Category 6: Known biopsy proven malignancy [id number]
== END ==
PROVIDERS: PCP Naturopath; Referring Provider Internal Medicine Hematology & Oncology; Visit Provider Internal Medicine Hematology & Oncology
DX: C50.811 Malignant neoplasm of overlapping sites of right female breast (principal); N64.9 Disorder of breast, unspecified; K76.9 Liver disease, unspecified
CPT/HCPCS: 77049; A9579

== ENCOUNTER → 2024-01-27 | Outpatient (CLI) | payer OTHER, SELFPAY ==
--- NOTE | 2024-01-27 12:34 | DI.CT.S_ITS ---
PROCEDURE: CT CHEST ABD PEL W CON INDICATIONS: Metastatic breast cancer TECHNIQUE: After the administration of intravenous contrast, 5 mm thick sections acquired from the lung apices to the symphysis. 5 mm coronal and sagittal reformats were performed, with additional 7 mm MIP reformats through the lungs. For radiation dose reduction, the following was used: automated exposure control, adjustment of mA and/or kV according to patient size. COMPARISON: [facility], CT, CT CHEST ABD PEL W CON, 10/14/2023, 12:54. FINDINGS: Chest: Cardiovascular: Heart size is normal. No evidence of pulmonary embolism, aortic aneurysm or dissection. Right-sided Port-A-Cath in place Lungs and pleural spaces: Small benign-appearing peripheral nodules in both lungs all measure less than 3-4 mm, unchanged from the prior Lymph nodes: No mediastinal, hilar or axillary adenopathy. Mediastinum: Unremarkable. No hiatal hernia. Thyroid within normal limits. Chest Wall and Bones: Right breast nodule with calcification has increased in size from the prior exam now measuring 1.4 x 1.9 cm, previously 1.4 by 0.6 cm. Abdomen and Pelvis: Liver: Stable extensive metastatic disease with contractions and pseudo cirrhotic appearance Biliary system: No calcified cholelithiasis or pericholecystic inflammation. No intra or extrahepatic bile duct dilatation. Pancreas: Unremarkable without mass or inflammation evident. Spleen: Normal in size and density. Adrenals: Normal morphology and density. Reproductive system: Unremarkable as visualized. Urinary system: Normal renal size and attenuation. No renal calculi, hydronephrosis, or solid mass present. Urinary bladder unremarkable. Gastrointestinal system: The bowel is unremarkable with no evidence of bowel obstruction or inflammation. The stomach appears unremarkable. Appendix: No findings to suggest acute appendicitis. Lymph nodes: No mesenteric or retroperitoneal adenopathy. Peritoneal spaces: No free air. No free fluid. Vasculature: The IVC, aorta and iliac vasculature are unremarkable. Right iliac short segment flap and left perirenal venous collaterals remain unchanged. Abdominal wall: Abdominal wall intact without evidence of ventral or inguinal hernias. Musculoskeletal: Normal bone mineralization. No acute fractures. IMPRESSION: 1. Right breast nodule is slightly larger than the prior exam, concerning for disease progression. 2. Small 2-3 mm benign-appearing pulmonary nodules, stable Approved by: Sarkis Bales M.D. on 01/27/2024 at 18:24
== END ==
LOC: CT 12:34
PROVIDERS: PCP Naturopath; Referring Provider Internal Medicine Hematology & Oncology; Visit Provider Internal Medicine Hematology & Oncology
DX: C50.911 Malignant neoplasm of unspecified site of right female breast (principal); C78.7 Secondary malignant neoplasm of liver and intrahepatic bile duct; R91.8 Other nonspecific abnormal finding of lung field; Z92.21 Personal history of antineoplastic chemotherapy; Z95.828 Presence of other vascular implants and grafts
CPT/HCPCS: 71260; 74177; Q9967

== ENCOUNTER → 2024-04-20 12:30 | Outpatient (CLI) | payer OTHER, SELFPAY ==
--- NOTE | 2024-04-20 12:31 | DI.CT.S_ITS ---
PROCEDURE: CT CHEST ABD PEL W CON INDICATIONS: STAGE 4 BREAST CANCER TECHNIQUE: After the administration of intravenous contrast, 5 mm thick sections acquired from the lung apices to the symphysis. 5 mm coronal and sagittal reformats were performed, with additional 7 mm MIP reformats through the lungs. For radiation dose reduction, the following was used: automated exposure control, adjustment of mA and/or kV according to patient size. COMPARISON: [facility], CT, CT CHEST ABD PEL W CON, 01/27/2024, 12:43. FINDINGS: Image quality: Diagnostic Lungs and pleura: No dense consolidation or pleural effusion. Scattered scarring and atelectasis. Multiple pulmonary nodules are stable, for example in the right image Mediastinum, heart, and esophagus: Right port catheter terminates in the SVC. Trace pericardial effusion Chest wall and thyroid: Similar right breast lesion measuring about 1.9 cm. Liver: Pseudo cirrhotic appearance of the liver again seen Overall appearance is unchanged, for example segment 6 lesion measuring 1.6 cm (). This was previously 1.7 and 2.7 cm. Capsular fluid is also again seen. Gallbladder and biliary system: Unremarkable, nondilated Pancreas: No ductal dilation Spleen: Nonenlarged. Small amount of fluid is again seen around the spleen Adrenals: No discrete nodule Kidneys: No solid mass or hydronephrosis Vessels and lymph nodes: The main portal vein appears patent. No abdominal aortic aneurysm. No pathologic lymph nodes by size criteria. Prominent collaterals around the left gonadal vein and left renal vein. Bowel and peritoneum: No evidence of small bowel obstruction. There is a small amount pelvic free fluid, as before Body wall: Unremarkable Pelvis: Bladder is unremarkable. Uterus is absent Bones: Degenerative changes, no acute or suspicious focal findings/changes. IMPRESSION: Metastatic disease in the liver with pseudo cirrhotic appearance is similar compared to recent prior imaging. Similar appearance of the right breast lesion. Again seen is small ascites and pericapsular fluid around the liver and spleen. Other findings as above. Dictated by: Mahamed Arizmendi M.D. on 04/21/2024 at 12:36 Approved by: Mahamed Arizmendi M.D. on 04/21/2024 at 12:46
== END ==
LOC: CT 12:30
PROVIDERS: PCP Naturopath; Referring Provider Internal Medicine Hematology & Oncology; Visit Provider Internal Medicine Hematology & Oncology
DX: C50.911 Malignant neoplasm of unspecified site of right female breast (principal); C78.7 Secondary malignant neoplasm of liver and intrahepatic bile duct; R18.8 Other ascites; R91.8 Other nonspecific abnormal finding of lung field; Z95.828 Presence of other vascular implants and grafts
CPT/HCPCS: 71260; 74177; Q9967

== ENCOUNTER → 2024-05-09 12:37 | Outpatient (CLI) | payer OTHER, SELFPAY ==
--- NOTE | 2024-05-09 13:30 | DI.MRI.S_ITS ---
PROCEDURE: MR HEAD/BRAIN WO/W CON INDICATIONS: 54-year-old female with headaches history of metastatic breast cancer TECHNIQUE: Noncontrast axial T1 spin echo, axial T2 fast spin echo, sagittal and axial FLAIR, coronal T2 fast spin echo, axial gradient echo, axial diffusion and ADC through the brain. After the administration of contrast, axial and coronal and sagittal 3D VIBE or T1 spin echo with fat saturation through the brain. COMPARISON: [facility], MR, MR HEAD/BRAIN WO/W CON, 07/29/2023, 13:26. FINDINGS: CSF Spaces: Basal cisterns are patent. No extra-axial fluid collections. Ventricles are normal in size and shape. Brain: There has been interval development of multiple metastatic nodules involving both cerebral and cerebellar hemispheres of varying sizes. Largest index lesions include right cerebellar 0.8 cm and left cerebellar 1.1 cm lesions with mild surrounding vasogenic edema. In the cerebral hemispheres, larger lesions include a 1.8 cm mass in the right lentiform nucleus with moderate surrounding edema, 1.1 cm left temporal lesion with significant surrounding edema as well as right postcentral gyrus 1.5 cm nodule with moderate surrounding edema. Multiple additional nodules noted. Left intraorbital enhancing mass centered on the medial rectus muscle belly also noted. Incidentally, there is a left parafalcine 1.5 cm meningioma which remains unchanged. Skull and face: Calvarial marrow is normal in signal. Orbits appear normal. Sinuses: Sinuses and mastoids appear clear. IMPRESSION: Widespread intracranial and left orbital metastatic disease. No evidence of hemorrhagic conversion or midline shift. Dictated by: Sarkis Bales M.D. on 05/09/2024 at 13:30 Approved by: Sarkis Bales M.D. on 05/09/2024 at 13:49
== END ==
PROVIDERS: PCP Naturopath; Referring Provider Internal Medicine Hematology & Oncology; Visit Provider Internal Medicine Hematology & Oncology
DX: C50.911 Malignant neoplasm of unspecified site of right female breast (principal); C78.7 Secondary malignant neoplasm of liver and intrahepatic bile duct; C79.31 Secondary malignant neoplasm of brain; C79.49 Secondary malignant neoplasm of other parts of nervous system; C78.00 Secondary malignant neoplasm of unspecified lung; G93.6 Cerebral edema; H40.052 Ocular hypertension, left eye
CPT/HCPCS: 70553; A9579

== ENCOUNTER → 2024-05-23 16:27 | Outpatient (CLI) | payer OTHER, SELFPAY ==
--- NOTE | 2024-05-23 16:28 | DI.MRI.S_ITS ---
PROCEDURE: MR THORACIC SPINE WO/W CON INDICATIONS: METASTASIS TO BRAIN TECHNIQUE: Noncontrast sagittal T1 spin echo and T2 fast spin echo, sagittal STIR, axial T1 and T2 fast spin echo through the thoracic spine. After the administration of contrast, axial and sagittal T1 spin echo with fat saturation through the thoracic spine. COMPARISON: [facility], CT, CT CHEST ABD PEL W CON, 04/20/2024, 12:54. FINDINGS: Image quality: Excellent. Alignment and curvature: There is normal bony alignment. Marrow: Marrow is of normal overall signal. No acute vertebral body compression fractures. Spinal cord: Visualized spinal cord is of normal signal and size, without abnormal enhancement. Paraspinous soft tissues: No paravertebral masses or abnormal enhancement. Miscellaneous: Central canal and foramina appear widely patent at all scanned levels. IMPRESSION: No evidence of metastatic disease Approved by: Sarkis Bales M.D. on 05/24/2024 at 14:23
--- NOTE | 2024-05-23 16:28 | DI.MRI.S_ITS ---
PROCEDURE: MR CERVICAL SPINE WO/W CON INDICATIONS: METASTASIS TO BRAIN TECHNIQUE: Noncontrast sagittal T1 spin echo and T2 fast spin echo, sagittal STIR, foraminal oblique sagittal T2 fast spin echo, axial gradient echo or T2 fast spin echo through the cervical spine. After the administration of contrast, axial and sagittal T1 spin echo with fat saturation through the cervical spine. COMPARISON: None. FINDINGS: Image quality: Excellent. Alignment and curvature: There is normal bony alignment. Marrow: Marrow is normal in overall signal, without suspicious enhancement. Spinal cord: Visualized spinal cord has normal size and signal. No cerebellar tonsillar herniation. No abnormal intramedullary enhancement. Paraspinous soft tissues: No paravertebral masses or suspicious enhancement. At the disc levels, mild degenerative changes at C5-6 results in mild central and bilateral foraminal stenosis. IMPRESSION: Mild degenerative changes without evidence of metastatic disease Approved by: Sarkis Bales M.D. on 05/24/2024 at 14:19
--- NOTE | 2024-05-23 16:28 | DI.MRI.S_ITS ---
PROCEDURE: MR LUMBAR SPINE WO/W CON INDICATIONS: METASTASIS TO BRAIN TECHNIQUE: Noncontrast sagittal T1 spin echo and T2 fast spin echo, sagittal STIR, axial T1 and T2 fast spin echo through the lumbar spine. In cases with scoliosis, additional coronal T2 fast spin echo may be performed. After the administration of contrast, sagittal and axial T1 spin echo with fat saturation through the lumbar spine. COMPARISON: None. FINDINGS: Image quality: Excellent. Alignment and curvature: There is normal bony alignment. Marrow: Marrow is of normal overall signal. No acute vertebral body compression fractures. No suspicious marrow enhancement. Spinal cord: Conus medullaris terminates at the L1 level. Visualized spinal cord demonstrates normal signal, without suspicious enhancement. Paraspinous soft tissues: No paravertebral masses or abnormal enhancement. T12-L1: Normal appearance. L1-L2: Normal appearance. L2-L3: Normal appearance. L3-L4: Normal appearance. L4-L5: Facet arthropathy. Mild central and foraminal stenosis. L5-S1: Facet arthropathy. No central or foraminal stenosis. IMPRESSION: Mild degenerative changes without significant stenosis evidence of metastatic disease Approved by: Sarkis Bales M.D. on 05/24/2024 at 13:43
== END ==
PROVIDERS: PCP Naturopath
DX: C79.31 Secondary malignant neoplasm of brain (principal); C80.1 Malignant (primary) neoplasm, unspecified; M47.812 Spondylosis without myelopathy or radiculopathy, cervical region; M47.816 Spondylosis without myelopathy or radiculopathy, lumbar region; M47.817 Spondylosis without myelopathy or radiculopathy, lumbosacral region
CPT/HCPCS: 72156; 72157; 72158; A9579

== ENCOUNTER → 2024-08-15 15:26 | Outpatient (CLI) | payer OTHER, SELFPAY ==
--- NOTE | 2024-08-15 15:58 | DI.MRI.S_ITS ---
PROCEDURE: MR HEAD/BRAIN WO/W CON INDICATIONS: BREAST CANCER WITH METS TECHNIQUE: Noncontrast axial T1 spin echo, axial T2 fast spin echo, sagittal and axial FLAIR, coronal T2 fast spin echo, axial gradient echo, axial diffusion and ADC through the brain. After the administration of contrast, axial and coronal and sagittal 3D VIBE or T1 spin echo with fat saturation through the brain. COMPARISON: [facility], MR, MR HEAD/BRAIN WO/W CON, 05/09/2024, 12:45. [facility], MR, MR HEAD/BRAIN WO/W CON, 07/29/2023, 13:26. FINDINGS: Image quality: Excellent. CSF Spaces: Basal cisterns are patent. No extra-axial fluid collections. Ventricles are normal in size and shape. Brain: Multiple foci of abnormal rim enhancing lesions can be seen throughout the brain. For example, there is a focus within the deep white matter of the right frontal lobe, as on series 13, image 90, measuring 18 x 18 mm, which is increased in size compared to the prior. Within the right frontal lobe posteriorly, there is a lesion measuring 16 mm transversely, compared to 15 mm on the prior. A lesion within the left temporal lesion measures 12 mm transversely, versus 11 mm on the prior. Within the right lateral cerebellum, there is a lesion seen that currently measures up to 11 mm, previously measuring 8 mm. Within the left cerebellar hemisphere, there is a lesion seen, measuring 12 mm, previously measuring 11 mm. Each of these lesions demonstrates surrounding edema. No findings of hemorrhage can be seen within these lesions. No midline shift. The brainstem appears normal. Diffusion-weighted images demonstrate no acute infarct. No chronic ischemic insults. Normal intravascular flow voids are present. Skull and face: Calvarial marrow is normal in signal. Left intraorbital masses are seen, with a mass along the left medial rectus muscle measuring 12 mm AP, compared to 11 mm on the prior. There is also abnormal fullness of the posterior aspect of the left inferior rectus muscle, measuring 8 mm transversely, compared to 8 mm on the prior. Sinuses: Sinuses and mastoids appear clear. IMPRESSION: Mild interval progression of known intracranial metastases. Left intraorbital masses are again seen, with slight progression compared to the prior. Dictated by: Fernando Chance M.D. on 08/16/2024 at 10:58 Approved by: Fernando Chance M.D. on 08/16/2024 at 11:03
== END ==
LOC: MRI 15:27
PROVIDERS: PCP Naturopath; Referring Provider Internal Medicine Hematology & Oncology; Visit Provider Internal Medicine Hematology & Oncology
DX: C50.911 Malignant neoplasm of unspecified site of right female breast (principal); C78.7 Secondary malignant neoplasm of liver and intrahepatic bile duct; C78.00 Secondary malignant neoplasm of unspecified lung; C79.31 Secondary malignant neoplasm of brain; H40.052 Ocular hypertension, left eye; H05.9 Unspecified disorder of orbit
CPT/HCPCS: 70553; A9579

== ENCOUNTER → 2024-09-05 15:39 | Outpatient (CLI) | payer OTHER, SELFPAY ==
--- NOTE | 2024-09-05 15:40 | DI.CT.S_ITS ---
PROCEDURE: CT CHEST ABD PEL W CON INDICATIONS: BREAST CANCER WITH METS TO LUNGS LIVER BRAIN ORB TECHNIQUE: After the administration of intravenous contrast, 5 mm thick sections acquired from the lung apices to the symphysis. 5 mm coronal and sagittal reformats were performed, with additional 7 mm MIP reformats through the lungs. For radiation dose reduction, the following was used: automated exposure control, adjustment of mA and/or kV according to patient size. COMPARISON: [facility], CT, CT CHEST ABD PEL W CON, 04/20/2024, 12:54. FINDINGS: Image quality: Diagnostic Lungs and pleura: There is a moderate left and small right pleural effusion, new from prior. Subjacent atelectasis. Numerous small pulmonary nodules again seen. No overtly suspicious dominant nodule. Attention on follow-up suggested, for example image on the right. Mediastinum, heart, and esophagus: Hyperenhancement of the esophageal mucosa distally. No pathologic lymph nodes by size criteria. Overall heart size within normal limits. A right port catheter is seen terminating in the SVC. Similar left supraclavicular prominent lymph node Chest wall and thyroid: Right breast mass again seen. This measures about 1.9 cm as before Liver: Pseudo cirrhotic appearance of the liver as before, with liver size decreased from prior. Disease progression is seen, most notably with conglomerate mass adjacent to the fissure for the falciform ligament in aggregate measuring 5.5 x 4.7 cm, increased. Gallbladder and biliary system: Unremarkable, nondilated Pancreas: No ductal dilation Spleen: Nonenlarged Adrenals: No discrete nodules Kidneys: No solid mass. No hydronephrosis. Vessels and lymph nodes: The main portal vein is patent. Diminutive appearance of the right portal vein, worsened from prior. Portal venous varices are seen in the upper abdomen around the esophagus. No pathologic retroperitoneal or pelvic lymph nodes by size criteria. Left gonadal venous collaterals again seen. No abdominal aortic aneurysm Bowel and peritoneum: No evidence of small bowel obstruction. There is diffuse bowel wall thickening. Moderate to large ascites. Body wall: [id number] diffuse anasarca Pelvis: Bladder is unremarkable. The uterus is absent. Bones: There are degenerative changes. No acute or suspicious osseous finding. IMPRESSION: Progression of liver metastases. Pseudo cirrhotic appearance of the liver, with overall decreased size, worse from prior. Moderate to severe ascites and new left greater right pleural effusions. 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 Unchanged right breast mass. Other findings as above. Dictated by: Mahamed Arizmendi M.D. on 09/06/2024 at 9:06 Approved by: Mahamed Arizmendi M.D. on 09/06/2024 at 9:16
== END ==
PROVIDERS: PCP Naturopath; Referring Provider Internal Medicine Hematology & Oncology; Visit Provider Internal Medicine Hematology & Oncology
DX: C50.911 Malignant neoplasm of unspecified site of right female breast (principal); C78.00 Secondary malignant neoplasm of unspecified lung; C78.7 Secondary malignant neoplasm of liver and intrahepatic bile duct; C79.31 Secondary malignant neoplasm of brain; C79.49 Secondary malignant neoplasm of other parts of nervous system; J90 Pleural effusion, not elsewhere classified; R18.8 Other ascites; Z90.710 Acquired absence of both cervix and uterus
CPT/HCPCS: 71260; 74177; Q9967